=== PATIENT | female | born 1945 | race Caucasian/White ===

== ENCOUNTER 2016-11-05 20:18 | Emergency (ER) | payer MEDICARE, OTHER ==
[~2016-11-05] VITALS: Ht 152.4 cm; Wt 63.5 kg
[2016-11-05 21:19] VITALS: Ht 152.4 cm; Wt 63.5 kg
--- NOTE | 2016-11-05 21:50 | ERA ---
ER Documentation Chief Complaint Date/Time DATE: 11/05/16 TIME: 21:49 Chief Complaint Right chest wall pain HPI The patient is a 71-year-old female, presenting to the ER because of pain beneath the right breast about 6 days ago after she possibly fainted due to emotional upset. Her grand-son's best friend during a motor vehicle accident. She rushed to see him because she thought that he had . She was overwhelmed and possibly fainted 6 days ago. She was picked up and put on the bed. She now complains of pain beneath the right breast for the last 6 days intermittently, 5/10, worse with movement. She denies any headache, facial pain , neck pain, chest pain with exertion or vomiting or diaphoresis. She denies abdominal pain, vomiting, dysuria, diarrhea, constipation. She does not smoke nor drink Past medical history: Hypertension Past surgical history: Appendectomy ROS All systems reviewed and are negative except as per history of present illness. Medications Home Meds Active Scripts Ibuprofen* (Motrin*) 600 Mg Tab, 600 MG PO Q6H Y for PAIN AND OR ELEVATED TEMP, #30 TAB Prov:CLAUDIO DEE MD 11/05/16 Allergies Allergies: Coded Allergies: No Known Allergy (Unverified , 11/05/16) PMhx/Soc History of Surgery: No Anesthesia Reaction: No Hx Neurological Disorder: No Hx Respiratory Disorders: No Hx Cardiac Disorders: No Hx Psychiatric Problems: No Hx Miscellaneous Medical Probl: No Hx Alcohol Use: No Hx Substance Use: No Hx Tobacco Use: No Physical Exam Vitals Vital Signs Date Time Temp Pulse Resp B/P Pulse Ox O2 Delivery O2 Flow Rate FiO2 11/05/16 21:19 98.0 82 20 166/78 97 Physical Exam Const: No acute distress. Head: Atraumatic. Eyes: Normal Conjunctiva. ENT: Normal External Ears, Nose and Mouth. Neck: Full range of motion. No meningismus. Resp: Clear to auscultation bilaterally. Minimal tenderness on the right chest wall, no crepitus, no rash Cardio: Regular rate and rhythm, no murmurs. Abd: Soft, non distended, normal bowel sounds, non tender. Skin: No petechiae or rashes. Back: No midline or flank tenderness. Ext: No cyanosis, or edema. Neur: Awake and alert. No focal deficit Psych: Normal Mood and Affect. Result Diagram: 11/05/168 11/05/162217 Results 24 hrs Laboratory Tests Test 11/05/16 22:18 White Blood Count 8.610^3/ul Red Blood Count 5.3010^6/ul Hemoglobin 9.9g/dl Hematocrit 31.7% Mean Corpuscular Volume 59.8fl Mean Corpuscular Hemoglobin 18.7pg Mean Corpuscular Hemoglobin Concent 31.2g/dl Red Cell Distribution Width 18.3% Platelet Count 70006^3/UL Mean Platelet Volume fl Prothrombin Time 12.5Sec Prothrombin Time Ratio 1.0 INR International Normalized Ratio 0.93 Activated Partial Thromboplast Time 26.9Sec Sodium Level 138mmol/L Potassium Level 3.8mmol/L Chloride Level 103mmol/L Carbon Dioxide Level 25mmol/L Anion Gap 14 Blood Urea Nitrogen 17mg/dl Creatinine 0.69mg/dl Glucose Level 111mg/dl Calcium Level 9.0mg/dl Current Medications Medications (Trade) Dose Ordered Sig/Angelo Route PRN Reason Start Time Stop Time Status Last Admin Dose Admin Acetaminophen/ Hydrocodone Bitart ([place] (5/325)) 1 tab ONCE ONCE PO 11/05/16 22:30 11/05/16 22:31 DC 11/05/16 22:22 Ondansetron HCl (Zofran Odt) 4 mg ONCE STAT ODT 11/05/16 22:01 11/05/16 22:25 DC 11/05/16 22:22 Procedures/MDM EKG: Read by emergency physician Rate/Rhythm: Normal Sinus Rhythm 80 beats/min QRS, ST, T-waves: No ST elevation, no T inversion Impression: Abnormal EKG [place] [id number] [facility] Main Line: [phone] DIAGNOSTIC IMAGING REPORT Patient: AARON ARAUZ : 1945 Age: 71 Sex: F MR #: [id number] DOS: 11/05/162200 Ordering MD: CLAUDIO DEE MD Location: [facility] Room/Bed: PROCEDURE: Portable chest x-ray. CLINICAL INDICATION: Syncope. TECHNIQUE: Portable AP view of the chest. COMPARISON: None. FINDINGS: No pulmonary edema or conolidation is identified. The cardiac silhouette is magnified. No pleural effusion is seen. There is no pneumothorax. IMPRESSION: 1. No evidence of acute cardiopulmonary disease. RPTAT: HTAR .Samm Smith MD, Date Time Electronically viewed and signed by .Samm Smith MD, MD on 11/05/2016 22:35 .R/ CC: CLAUDIO DEE MD [place] [id number] [facility] Main Line: [phone] DIAGNOSTIC IMAGING REPORT Patient: AARON ARAUZ : 1945 Age: 71 Sex: F MR #: [id number] DOS: 11/05/16 2201 Ordering MD: CLAUDIO DEE MD Location: [facility] Room/Bed: PROCEDURE: CT Brain without contrast. CLINICAL INDICATION: Syncope. TECHNIQUE: A CT of the brain was performed utilizing axial sections from the skull base through the vertex without contrast. Multiplanar re-formations were generated. Images were reviewed on a high-resolution PACS workstation. CTDIvol: 44.52 mGy. DLP: 635 mGy-cm. One or more of the following dose reduction techniques were used: - Automated exposure control. - Adjustment of the mA and/or kV according to patient size. - Use of iterative reconstruction technique. COMPARISON: None available FINDINGS: There is mild generalized volume loss. No hydrocephalus is seen. There is no mass effect. No acute intracranial hemorrhage is identified. There is no extra- axial collection. No CT evidence of acute infarction is identified. There is no significant mucosal disease in the paranasal sinuses. The visualized mastoid air cells are clear. The ossesous structures are unremarkable. The extracranial soft tissues are unremarkable. IMPRESSION: 1. No acute intracranial pathology. 2. Mild generalized volume loss. RPTAT: HTAR .Samm Smith MD, MD Date Time Electronically viewed and signed by .Samm Smith MD, MD on 11/05/2016 22:33 .R/ CC: CLAUDIO DEE MD MEDICAL MAKING DECISION: The patient is a 71-year-old female, presenting with acute right chest wall pain, most likely due to musculoskeletal pain, acute syncope, most likely due to vasovagal origin. She was treated with [place] 5 mg p.o. and Zofran ODT for pain with good response. The differential diagnoses for acute chest pain considered include but are not limited to acute coronary syndrome, acute myocardial infarction, pericarditis, pulmonary embolism, aortic dissection, pneumonia, pleural effusion, pneumothorax, GERD, chest wall pain. The differential diagnoses for acute syncope considered include but are not limited to bradyarrhythmia, tachyarrhythmias, aortic outflow obstruction, neurogenic including subarachnoid hemorrhage, orthostatic hypotension and all of its causes, hypoglycemia, dysautonomia, medications. Departure Diagnosis: Primary Impression: Right-sided chest wall pain Additional Impression: Syncope Condition: Good Comments She was discharged with Motrin I discussed the findings with the patient. I advised the patient to follow-up with the primary physician in about 1-2 days, sooner if needed and return if any concern. CLAUDIO DEE MD Nov 05, 2016 21:50
[2016-11-05] MEDS ORDERED: ONDANSETRON (ODT) 4 MG TAB ODT STA (22:01)
[2016-11-05] MEDS ORDERED: HYDROCODONE/APAP (5/325) TAB PO ONE (22:30)
[2016-11-05 22:31] LABS: ADD SCAN DIFF NO
[2016-11-05 22:34] LABS: ABNORMAL IP MESSAGE 1; HEMATOCRIT 31.7 % (37.0-47.0); HEMOGLOBIN 9.9 g/dl (12.0-16.0); MEAN CORPUSCULAR HEMOGLOBIN 18.7 pg (29.0-33.0); MEAN CORPUSCULAR HGB CONC 31.2 g/dl (32.0-37.0); MEAN CORPUSCULAR VOLUME 59.8 fl (82.0-101.0); PLATELET COUNT 223 10^3/UL (140-415); RED CELL DISTRIBUTION WIDTH 18.3 % (11.5-14.5); WHITE BLOOD COUNT 8.6 10^3/ul (4.8-10.8)
--- NOTE | 2016-11-05 22:34 | RADRPT ---
PROCEDURE: CT Brain without contrast. CLINICAL INDICATION: Syncope. TECHNIQUE: A CT of the brain was performed utilizing axial sections from the skull base through th e vertex without contrast. Multiplanar re-formations were generated. Images were reviewed on a high- resolution PACS workstation. CTDIvol: 44.52 mGy. DLP: 635 mGy-cm. One or more of the following dose reduction techniques were used: - Automated exposure control. - Adjustment of the mA and/or kV according to patient size. - Use of iterative reconstruction technique. COMPARISON: None available FINDINGS: There is mild generalized volume loss. No hydrocephalus is seen. There is no mass effect. No acute intracranial hemorrhage is identified. There is no extra-axial collection. No CT evidence of acute infarction is identified. There is no significant mucosal disease in the paranasal sinuses. The visualized mastoid air cells a re clear. The ossesous structures are unremarkable. The extracranial soft tissues are unremarkable. IMPRESSION: 1. No acute intracranial pathology. 2. Mild generalized volume loss. RPTAT: HTAR .Samm Smith MD, Date Time Electronically viewed and signed by .Samm Smith MD, on 11/05/2016 22:33 .R/
--- NOTE | 2016-11-05 22:35 | RADRPT ---
PROCEDURE: Portable chest x-ray. CLINICAL INDICATION: Syncope. TECHNIQUE: Portable AP view of the chest. COMPARISON: None. FINDINGS: No pulmonary edema or conolidation is identified. The cardiac silhouette is magnified. No pleural effusion is seen. There is no pneumothorax. IMPRESSION: 1. No evidence of acute cardiopulmonary disease. RPTAT: HTAR .Samm Smith MD, MD Date Time Electronically viewed and signed by .Samm Smith MD, on 11/05/2016 22:35 .R/
[2016-11-05 22:45] LABS: POTASSIUM 3.8 mmol/L (3.5-5.1)
[2016-11-05 22:46] LABS: INR 0.93; PARTIAL THROMBOPLASTIN TIME 26.9 Sec (25.0-35.0); PROTIME 12.5 Sec (12.2-14.2)
[2016-11-05 22:47] LABS: CREATININE 0.69 mg/dl (0.44-1.00)
[2016-11-05] MEDS ORDERED: IBUP-1542 PO (23:09)
[2016-11-05 23:21] VITALS: BP 147/76; PULSE 82; RESP 18; TEMP 98
[2016-11-06 01:50] LABS: EOSINOPHILS # 0.2 10^3/ul (0.0-0.5); LYMPHOCYTES # 2.8 10^3/ul (0.8-2.9); MONOCYTE # 0.5 10^3/ul (0.3-0.9); NEUTROPHIL # 5.2 10^3/ul (1.6-7.5); PLATELET ESTIMATE PLT APPEAR ADEQUATE
== END 2016-11-05 23:23 | disposition home or self-care (01) ==
LOC: FTE 20:18
DX: R07.89 Other chest pain (principal); R55 Syncope and collapse; I10 Essential (primary) hypertension
CPT/HCPCS: 70450; 71010; 80048; 85025; 85610; 85730; 93005